=== PATIENT | female | born 1965 | race Caucasian/White ===

== ENCOUNTER 2019-01-07 09:47 | Outpatient (CLI) | payer OTHER ==
--- NOTE | 2019-01-07 11:24 | ULT ---
THYROID ULTRASOUND: DATE: 01/07/2019. PROVIDED CLINICAL HISTORY: Goiter. FINDINGS: Right thyroid lobe measures about 5 x 2 x 2.3 cm. There are 3 nodules present within the right thyro id lobe. The 1st nodule is located at the superior pole and measures about 1.5 cm maximally. This is isoechoi c to hyperechoic, wider than tall and smoothly marginated without evidence for internal echogenic foc i. The second nodule is located in the mid portion of the right thyroid lobe and measures approximately 2 cm. This demonstrates a somewhat more heterogeneous appearance with areas of increased echogenicit y, iso-echogenicity, and hypoechogenicity. This is essentially round. No significant internal echog enic foci are seen. The third lesion is present at the inferior pole of the right thyroid lobe. This is hypoechoic, laci ures approximately 1 cm, is wider than tall, and demonstrates circumscribed margins without foci of i nternal echogenicity. The left thyroid lobe measures about 4.3 x 2.1 x 2.1 cm and demonstrates a 2.6 cm greatest dimension nodule in the mid portion of the thyroid lobe. This is isoechoic to thyroid parenchyma, solid-appear ing, wider than tall, smoothly marginated, and without internal echogenic foci. No additional left t hyroid lobe nodules are evident. IMPRESSION: 1. Multiple right-sided thyroid nodules. The superior pole lesion is TIRADS level 3 and followup is recommended. The mid pole thyroid lobe lesion is TIRADS category 4 and given its size tissue sampli ng should be considered. The inferior pole nodule is TIRADS category 4 but is less than 1.5 cm and s hould be followed. 2. 2.6 cm left thyroid lobe nodule. TIRADS level 3. Tissue sampling should be considered due to si ze. POS: OFF
== END 2019-01-07 09:48 | disposition home or self-care (01) ==
LOC: BICULT 09:47
PROVIDERS: ATTEND Internal Medicine
DX: E04.2 Nontoxic multinodular goiter (principal)
CPT/HCPCS: 76536

== ENCOUNTER 2019-05-05 12:57 | Day surgery (SDC) | payer OTHER ==
[2019-05-04 15:36] VITALS: BMI 20.7
[2019-05-05] MEDS ORDERED: Sodium Bicarbonate 2.5 MEQ/5 ML VIAL ONE (13:00)
--- NOTE | 2019-05-05 15:29 | ULT ---
Exam: Ultrasound guided fine-needle aspiration of a left and right thyroid lobe nodule Comparison: 01/07/2019 FINDINGS: Successful 25-gauge needle fine-needle aspiration of a mixed echotexture nodule in the righ t thyroid lobe with punctate calcifications. A total of four passes were made. No immediate or postprocedure complication. Successful 25-gauge needle fine-needle aspiration of a solid nodule in th e left thyroid lobe. Total of four passes were made. No immediate or postprocedure complications TECHNIQUE: Consent obtained to perform an ultrasound guided fine-needle aspiration of a mixed nodule in the right thyroid lobe and a solid nodule left thyroid lobe. Initially, the right neck was prepped and draped in a sterile fashion. 1% lidocaine, buffered with sodium bicarbonate was used for local anesthesia. Under ultrasound, four 25-gauge fine-needle aspirations were performed. Subsequently, the left neck was prepped and draped in a sterile fashion. 1% lidocaine, buffered with sodium bicarbonate was used for local anesthesia. Under ultrasound guidance, four 25-gauge fine aspirations were performed. Post procedure images do not demonstrate any significant hematoma in the right or left neck There are no immediate or postprocedure complications IMPRESSION: Successful fine-needle aspiration of a nodule in the left and right thyroid lobe Transcribed Date/Time: 05/05/2019 3:39 PM
== END 2019-05-05 13:45 | disposition home or self-care (01) ==
LOC: ULT 12:57
PROVIDERS: ATTEND Internal Medicine
PROC: 0GBG3ZX Excision of Left Thyroid Gland Lobe, Percutaneous Approach, Diagnostic (ICD-10-PCS; principal; 2019-05-05)
PROC: 0GBH3ZX Excision of Right Thyroid Gland Lobe, Percutaneous Approach, Diagnostic (ICD-10-PCS; principal; 2019-05-05)
DX: E04.2 Nontoxic multinodular goiter (principal); K21.9 Gastro-esophageal reflux disease without esophagitis; G43.909 Migraine, unspecified, not intractable, without status migrainosus; J30.9 Allergic rhinitis, unspecified; Z79.899 Other long term (current) drug therapy; Z88.8 Allergy status to other drugs, medicaments and biological substances
CPT/HCPCS: 60100; 76942; 88173

== ENCOUNTER 2021-01-23 14:09 | Outpatient (CLI) | payer OTHER ==
[2021-01-24 01:14] LABS: SARS-CoV-2 PCR by NAA Not Detected (NotDetected)
== END 2021-01-23 14:10 | disposition home or self-care (01) ==
LOC: LABBT 14:09
PROVIDERS: ATTEND Internal Medicine Gastroenterology
DX: Z01.812 Encounter for preprocedural laboratory examination (principal); Z20.822 Contact with and (suspected) exposure to COVID-19
CPT/HCPCS: 87635; U0003; U0005

== ENCOUNTER 2021-01-26 06:03 | Day surgery (SDC) | payer OTHER ==
[2021-01-25 11:33] VITALS: BMI 20.5
[2021-01-26] MEDS ORDERED: PROPOFOL 200 MG/20 ML VIAL ONE (08:01)
[2021-01-26] MEDS ORDERED: Lidocaine 1% PF 5 ML VIAL ONE (08:01)
== END 2021-01-26 09:50 | disposition home or self-care (01) ==
LOC: SDC 06:03
PROVIDERS: ATTEND Internal Medicine Gastroenterology
PROC: 0DBK8ZX Excision of Ascending Colon, Via Natural or Artificial Opening Endoscopic, Diagnostic (ICD-10-PCS; principal; 2021-01-26)
PROC: 0DBH8ZX Excision of Cecum, Via Natural or Artificial Opening Endoscopic, Diagnostic (ICD-10-PCS; principal; 2021-01-26)
DX: Z12.11 Encounter for screening for malignant neoplasm of colon (principal); D12.0 Benign neoplasm of cecum; D12.2 Benign neoplasm of ascending colon; K57.30 Diverticulosis of large intestine without perforation or abscess without bleeding; E03.9 Hypothyroidism, unspecified; J45.909 Unspecified asthma, uncomplicated; Z79.51 Long term (current) use of inhaled steroids; Z79.899 Other long term (current) drug therapy; Z86.010 Personal history of colon polyps; Z88.8 Allergy status to other drugs, medicaments and biological substances
CPT/HCPCS: 88305; J2704

== ENCOUNTER 2022-01-24 09:04 | Outpatient (CLI) | payer BC | END 2022-01-24 09:05 | disposition home or self-care (01) | LOC: BICMAMMO 09:04 | PROVIDERS: ATTEND Obstetrics & Gynecology | DX: N63.20 Unspecified lump in the left breast, unspecified quadrant (principal) | CPT/HCPCS: G0279 ==

== ENCOUNTER 2022-02-26 16:50 | Outpatient (CLI) | payer BC ==
[2022-02-26 18:04] LABS: #Basophils 0.1 10x3/uL (0.0-0.2); #Eosinphils 1.1 10x3/uL (0.0-0.5); #Monocytes 0.5 10x3/uL (0.0-1.1); #Neutrophils 2.8 10x3/uL (1.5-8.4); %Basophils 1.2 % (0.0-2.0); %Eosinophils 16.6 % (0.0-6.0); %Lymphocytes 32.4 % (18.0-47.0); %Monocytes 7.9 % (0.0-10.0); %Neutrophils 40.9 % (40.0-75.0); Hemoglobin 11.8 g/dL (12.0-15.5); Mean Corpuscular HGB CONC 31.7 g/dL (32.0-36.0); Mean Corpuscular Hemoglobin 29.1 pg (27.0-33.0); Mean Corpuscular Volume 91.6 fl (81.6-98.3); Mean Platelet Volume 10.6 fl (7.4-10.4); Platelet Count 250 10x3/uL (150-450); RBC Distribution Width 14.3 % (11.5-14.5); Red Blood Cell (RBC) Count 4.06 10x6/uL (3.90-5.03); White Blood Cell (WBC) Count 6.8 10x3/uL (3.5-10.5)
[2022-02-26 18:10] LABS: Anion Gap 12 mmol/L (10-20); BUN (Urea Nitrogen) 15 mg/dL (9.8-20.1); Calc. Creatinine Clearance 0 mL/min (70-130); Calcium 8.9 mg/dL (7.8-10.44); Carbon Dioxide 28 mmol/L (22-29); Chloride 102 mmol/L (98-107); Glucose 100 mg/dL (70-105); Potassium 3.8 mmol/L (3.5-5.1); Sodium 138 mmol/L (136-145)
== END 2022-02-26 16:51 | disposition home or self-care (01) ==
LOC: LABBT 16:50
PROVIDERS: ATTEND Specialist
DX: Z01.818 Encounter for other preprocedural examination (principal); N63.20 Unspecified lump in the left breast, unspecified quadrant; Z20.822 Contact with and (suspected) exposure to COVID-19
CPT/HCPCS: 80048; 85025; 93005; 93010; U0003; U0005

== ENCOUNTER 2022-02-28 06:00 | Day surgery (SDC) | payer BC ==
[2022-02-26 14:54] VITALS: BMI 22.9
[2022-02-28] MEDS ORDERED: Acetaminophen 500 MG TAB ONE (06:14)
[2022-02-28] MEDS ORDERED: Ketorolac Tromethamine 30 MG/ML VIAL ONE (06:14)
[2022-02-28] MEDS ORDERED: Bupivacaine 0.25% HCL 30 ML VIAL ONE (06:54)
[2022-02-28] MEDS ORDERED: Lidocaine 1% w/Epinephrine 1:100K 20 ML VIAL ONE (06:54)
[2022-02-28] MEDS ORDERED: fentaNYL Citrate/PF 100 MCG/2 ML SYRINGE ONE (07:05)
[2022-02-28] MEDS ORDERED: Sodium Chloride 0.9% 100 ML ONE (07:27)
[2022-02-28] MEDS ORDERED: CEFAZOLIN 2 GM VIAL ONE (07:27)
[2022-02-28] MEDS ORDERED: PROPOFOL 200 MG/20 ML VIAL ONE (07:37)
[2022-02-28] MEDS ORDERED: Ondansetron PF 4 MG/2 ML Vial ONE (07:37)
[2022-02-28] MEDS ORDERED: ePHEDrine 50 MG/ML VIAL ONE (07:37)
[2022-02-28] MEDS ORDERED: Lidocaine 1% PF 5 ML VIAL ONE (07:37)
[2022-02-28] MEDS ORDERED: Meperidine HCl/PF 25 MG/ML VIAL ONE (08:29)
== END 2022-02-28 10:44 | disposition home or self-care (01) ==
LOC: SDC 06:00
PROVIDERS: ATTEND Specialist
PROC: 0HBU0ZZ Excision of Left Breast, Open Approach (ICD-10-PCS; principal; 2022-02-28)
DX: D24.2 Benign neoplasm of left breast (principal); E04.9 Nontoxic goiter, unspecified; K21.9 Gastro-esophageal reflux disease without esophagitis; Z79.83 Long term (current) use of bisphosphonates; Z79.890 Hormone replacement therapy; Z79.899 Other long term (current) drug therapy; Z88.8 Allergy status to other drugs, medicaments and biological substances
CPT/HCPCS: 88305; J0690; J1885; J2175; J2405; J2704; J3490; S0020

== ENCOUNTER 2024-10-29 14:28 | Outpatient (CLI) | payer BC | END 2024-10-29 14:29 | disposition home or self-care (01) | LOC: BICULT 14:28 | PROVIDERS: ATTEND Family Medicine | DX: E04.2 Nontoxic multinodular goiter (principal) | CPT/HCPCS: 76536 ==